=== PATIENT | female | born 1965 | race Hispanic/Latino ===

== ENCOUNTER 2022-12-14 12:59 | Emergency (ER) | payer OTHER ==
[~2022-12-14] VITALS: Ht 157.5 cm; Wt 57.8 kg
[~2022-12-14 12:59] MED LIST: ADVIL200 MG OR; TYLENOL325 MG OR
[2022-12-14 13:13] VITALS: BP 177/99
[2022-12-14 13:15] VITALS: BP 200/114
[2022-12-14 13:30] VITALS: BP 168/91
[2022-12-14 13:42] VITALS: BP 151/94
[2022-12-14 13:45] LABS: BASO% 0.3 % (0-3); EOS% 1.4 % (0-8); IMMATURE GRANULOCYTES 0.2 % (0.0-5.0); MEAN CELL VOLUME 89.8 fL CALC (80.0-100.0); MEAN CORPUSCULAR HGB 29.9 pG CALC (26.0-32.0); MEAN CORPUSCULAR HGB CONC 33.3 g/dL CAL (32.0-36.0); MONO% 6.6 % (2-13); NEUT# 6.37 thou/uL (2.00-7.15); NEUT% 66.5 % (42-76); RED BLOOD COUNT 5.22 mill/uL (4.20-5.60)
[2022-12-14 13:51] LABS: HEMATOCRIT 46.9 % (37.0-47.0); HEMOGLOBIN 15.6 g/dl (12.0-16.0)
[2022-12-14 13:58] LABS: ALBUMIN 4.3 g/dL (3.2-5.0); ALKALINE PHOSPHATASE 144 u/l (38-126); BUN 15 mg/dL (7-17); BUN/CREATININE RATIO 35 (12-20 (CALC)); CARBON DIOXIDE 25 mmol/l (22-30); CHLORIDE 103 mmol/l (95-108); CREATININE 0.4 mg/dL (0.5-1.0); GFR FOR AFR.AMER. > 60 ML/MIN (>=60 (CALC)); GFR OTHER RACES > 60 ML/MIN (>=60 (CALC)); SGOT/AST 29 u/l (14-36); TOTAL PROTEIN 7.4 g/dL (6.3-8.2)
[2022-12-14 14:02] LABS: ANION GAP 12 (6-22 (CALC)); SODIUM 136 mmol/l (137-146)
[2022-12-14 15:46] VITALS: BP 151/94
== END 2022-12-14 16:01 | disposition home or self-care (01) ==
LOC: ED 12:59
PROVIDERS: Family Medicine
DX: R51.9 Headache, unspecified (principal); I10 Essential (primary) hypertension